=== PATIENT | female | born 1945 | race Hispanic/Latino ===

== ENCOUNTER 2021-04-21 09:30 | Observation (INO) | payer MEDICARE ==
[2021-04-19 15:22] LABS: BASOPHILS % 0.6 % (0.0-1.0); EOSINOPHILS % 0.6 % (0.0-6.0); HEMOGLOBIN 12.5 g/dL (12.0-16.0); LYMPHOCYTES # (AUTO) 1.3 (1.0-3.2); LYMPHOCYTES % 23.5 % (18.0-39.1); MEAN CORPUSCULAR HEMOGLOBIN 31.3 pg (28-32); MEAN CORPUSCULAR HGB CONC 32.1 g/dL (31-35); MEAN CORPUSCULAR VOLUME 97.7 fL (81-99); MONOCYTES # (AUTO) 0.4 (0.2-0.8); MONOCYTES % 7.9 % (4.4-11.3); NEUTROPHILS # (AUTO) 3.7 (2.1-6.9); NEUTROPHILS % 67.2 % (38.7-80.0); PLATELET COUNT 219 x10e3/uL (140-360); RED BLOOD COUNT 3.99 x10e6/uL (3.6-5.1); RED CELL DISTRIBUTION WIDTH 12.3 % (11.7-14.4)
[2021-04-19 15:30] LABS: INR 0.82; PROTHROMBIN TIME 12.1 seconds (11.9-14.5)
[2021-04-19 15:31] LABS: PARTIAL THROMBOPLASTIN TIME 25.4 seconds (23.8-35.5)
[2021-04-19 15:35] LABS: ANION GAP 10.2 mmol/L (8-16); CALCIUM 9.8 mg/dL (8.4-10.2); CREATININE, SERUM 0.99 mg/dL (0.57-1.11); POTASSIUM 4.2 mmol/L (3.5-5.1)
[~2021-04-21] VITALS: Ht 160 cm; Wt 51.7 kg
[~2021-04-21 09:30] MED LIST: ASPIRIN81 MG PO; ATIVAN1 MG PO; BACLOFEN10 MG PO; BRIMONIDINE 0.110 ML OP; GABAPENTIN300 MG PO; LEVOTHYROXINE88 MCG PO; LIDOCAINE 1% W/EPINEPHRINE 20 ML VIAL ONE; LOSARTAN POTASS25 MG PO; MELATONIN3 MG PO; MIRALAX17 GM PO; MOBIC7.5 MG PO; PRAVASTATIN SOD40 MG PO; SALONPAS GEL-P1 EAC1 TOP; SODIUM CHLORIDE 0.9% 50ML 100 ML ONE; TYLENOL325 MG PO; Vancomycin IV 1 GM VIAL ONE
[2021-04-21] MEDS ORDERED: MORPHINE SULFATE 5 MG/ML VIAL IM PRN (10:15)
[2021-04-21] MEDS ORDERED: POLYETHYLENE GLYCOL 3350 17 GM PACK PO PRN (10:15)
[2021-04-21] MEDS ORDERED: CARISOPRODOL 350 MG TAB PO PRN (10:15)
[2021-04-21] MEDS ORDERED: ONDANSETRON HCL INJ 2MG/ML 2ML 2 MG/ML VIAL IV PRN (10:15)
[2021-04-21] MEDS ORDERED: MAGNESIUM/ALUMINUM/SIMETHICONE 30 ML UDC PO PRN (10:15)
[2021-04-21] MEDS ORDERED: OXYCODONE/ACETAMINOPHEN 5-325 1 EACH TABLET PO PRN (10:15)
[2021-04-21] MEDS ORDERED: PROMETHAZINE HCL (IM) 25 MG/ML VIAL IM PRN (10:15)
[2021-04-21] MEDS ORDERED: HYDROCODON-ACE1 EA12 PO (10:15)
[2021-04-21] MEDS ORDERED: ACETAMINOPHEN 325 MG TAB PO PRN (10:15)
[2021-04-21] MEDS ORDERED: HYDROMORPHONE 2MG/ML 2 MG/ML ML IV PRN (10:15)
[2021-04-21] MEDS ORDERED: FENTANYL CITRATE/PF 100MCG/2 ML INJ ONE ×2 (10:54→12:22)
[2021-04-21] MEDS ORDERED: POVIDONE IODINE 0.05% 0.05 % ML PO ONE (12:03)
[2021-04-21] MEDS ORDERED: DEXAMETHASONE SOD PHOS INJ 4 MG/ML SDV ONE (12:03)
[2021-04-21] MEDS ORDERED: NEOSTIGMINE 1 MG/ML 10ML VIAL ONE (12:03)
[2021-04-21] MEDS ORDERED: SEVOFLURANE INHAL SOLN 250 ML PEN BTL ONE (12:03)
[2021-04-21] MEDS ORDERED: GLYCOPYRROLATE INJ 0.2 MG/ML VIAL ONE (12:03)
[2021-04-21] MEDS ORDERED: PROPOFOL IV EMULSION 10 MG/ML 20 ML VIAL ONE (12:03)
[2021-04-21] MEDS ORDERED: ONDANSETRON HCL INJ 2MG/ML 2ML 2 MG/ML VIAL ONE (12:03)
[2021-04-21] MEDS ORDERED: ROCURONIUM BROMIDE 10 MG/ML 5ML VIAL IV ONE (12:03)
[2021-04-21] MEDS ORDERED: LIDOCAINE HCL 2% LOCAL INJ 5 ML SDV VIAL INJ ONE (12:03)
[2021-04-21] MEDS ORDERED: EPHEDRINE SULFATE INJ 50 MG/ML VIAL ONE (12:03)
[2021-04-21] MEDS ORDERED: MIDAZOLAM HCL 2 MG/2 ML VIAL ONE (12:22)
[2021-04-21 13:25] VITALS: BP 152/65
[2021-04-21 13:54] VITALS: BP 152/65
[2021-04-21 14:10] VITALS: BP 152/65
[2021-04-21] MEDS: GABAPENTIN 100 MG CAP PO SCH ×2 (14:33→21:40)
[2021-04-21] MEDS: Cefazolin 1 GM in SODIUM CHLORIDE 0.9% 50ML 50 ML IV SCH ×2 (14:33→21:40)
[2021-04-21] MEDS: LACTATED RINGER'S 1,000 ML IV SCH ×2 (14:33→21:40)
[2021-04-21 15:24] VITALS: BP 158/69
[2021-04-21 20:00] VITALS: BP 148/69
[2021-04-21 21:00] VITALS: BP 148/69
[2021-04-21] MEDS ORDERED: LOSARTAN POTASSIUM 25 MG TAB PO SCH (21:00)
[2021-04-21] MEDS ORDERED: MELATONIN 3 MG TAB PO PRN (21:00)
[2021-04-21] MEDS ORDERED: ZOLPIDEM TARTRATE 5 MG TAB PO PRN (21:00)
[2021-04-22] VITALS: BP 158/80
[2021-04-22 04:00] VITALS: BP 130/44
[2021-04-22] MEDS: LACTATED RINGER'S 1,000 ML IV SCH (04:32)
[2021-04-22] MEDS ORDERED: LEVOTHYROXINE SODIUM 88 MCG TAB PO SCH (06:00)
[2021-04-22] MEDS: Cefazolin 1 GM in SODIUM CHLORIDE 0.9% 50ML 50 ML IV SCH (06:30)
[2021-04-22] MEDS ORDERED: ONDANSETRON HCL 4 MG ORAL DISINTEGRATING TAB PO PRN (07:30)
[2021-04-22 08:11] VITALS: BP 147/62
[2021-04-22] MEDS ORDERED: BACLOFEN 10 MG TAB PO SCH (09:00)
[2021-04-22] MEDS ORDERED: MELOXICAM 7.5 MG TAB PO SCH (09:00)
[2021-04-22] MEDS ORDERED: LORAZEPAM 0.5 MG TAB PO SCH (09:00)
== END 2021-04-22 09:16 | disposition home or self-care (01) ==
LOC: OR 09:30 → PACU V 10:39 → MED/SURG3 13:08
PROVIDERS: ADMIT Neurological Surgery; ATTEND Neurological Surgery
DX: M48.062 Spinal stenosis, lumbar region with neurogenic claudication (principal); I10 Essential (primary) hypertension; E78.5 Hyperlipidemia, unspecified; E06.3 Autoimmune thyroiditis; R12 Heartburn; E03.9 Hypothyroidism, unspecified; K21.9 Gastro-esophageal reflux disease without esophagitis; Z20.822 Contact with and (suspected) exposure to COVID-19; Z01.810 Encounter for preprocedural cardiovascular examination; Z01.812 Encounter for preprocedural laboratory examination; Z01.818 Encounter for other preprocedural examination
CPT/HCPCS: 36415; 63047; 63048; 71046; 72020; 80048; 85025; 85610; 85730; 86850; 86900; 88304; 88311; 93005; G0378 ×2; J0690 ×2; J1100; J2001; J2250; J2405; J2704; J2710; J3010; J3370; J7121 ×2; U0002

== ENCOUNTER 2021-05-27 14:51 | Outpatient (RCR) | payer MEDICARE ==
[~2021-05-27 14:51] MED LIST changes: +HYDROCODON-ACE1 EA12 PO; -LIDOCAINE 1% W/EPINEPHRINE 20 ML VIAL ONE; -SODIUM CHLORIDE 0.9% 50ML 100 ML ONE; -Vancomycin IV 1 GM VIAL ONE
== END 2021-06-04 ==
LOC: PT 14:51
PROVIDERS: ATTEND Neurological Surgery
DX: M51.17 Intervertebral disc disorders with radiculopathy, lumbosacral region (principal)